=== PATIENT | male | born 1980 | race Caucasian/White ===

== ENCOUNTER 2021-08-26 13:12 | Inpatient (IN) | payer BC ==
[2021-08-26] MEDS ORDERED: SODIUM CHLORIDE 0.9% 2,000 ML IV ONE (15:29)
[2021-08-26] MEDS ORDERED: ONDANSETRON 4 MG/2 ML VIAL IVP STA (15:31)
[2021-08-26] MEDS ORDERED: MORPHINE SULFATE 4 MG/ML SYRINGE IVP STA (15:31)
[2021-08-26] MEDS ORDERED: ACETAMINOPHEN TAB 500 MG TAB PO STA (15:31)
[2021-08-26 16:22] LABS: Appearance,Urine Clear (Clear); Bilirubin,Urine Negative (Negative); Blood,Urine Small (Negative); Color,Urine Yellow; Glucose,Urine (UA) Negative (Negative); Ketones,Urine 1+ (Negative); Leukocyte Esterase,Urine Negative (Negative); Mucus,Urine Many /hpf; Nitrite,Urine Negative (Negative); PH, Urine 6.5 (5.0-8.0); Protein,Urine 2+ (Negative); RBC,Urine 41 /hpf (0-5); Specific Gravity,Urine 1.032 (1.001-1.035); WBC,Urine 6 /hpf (0-5)
--- NOTE | 2021-08-26 16:33 | ED ---
General Adult HPI - General Chief complaint: Fever Stated complaint: Vomiting Time Seen by Provider: 08/26/21 15:09 Source: patient Mode of arrival: ambulatory Limitations: no limitations - History of Present Illness Initial comments: 41-year-old male, previously healthy presents the emergency room with 4 days worth of fevers and vomiting. He denies any sick contacts. States that on Saturday he started to feel ill. He has been unable to hold down any food or drink. He was taking Motrin for fever control however last dose was yesterday. He denies eating any tainted foods. Does have generalized abdominal pain. Denies bilious vomiting. Admits to some blood flecks in his emesis this morning. He denies diarrhea, constipation, black or bloody stools. No burning, bladder or frequency of urination. No back pain. Denies any head. Does admit to generalized muscle aches. No other alleviating, precipitating or modifying factors - Related Data Home Medications Medication Instructions Recorded Confirmed No Known Home Medications 08/26/21 08/26/21 Allergies Allergy/AdvReac Type Severity Reaction Status Date / Time No Known Allergies Allergy Verified 08/26/21 16:01 Review of Systems ROS Statement: Those systems with pertinent positive or pertinent negative responses have been documented in the HPI. ROS Other: All systems not noted in ROS Statement are negative. Past Medical History Past Medical History: No Reported History History of Any Multi-Drug Resistant Organisms: None Reported Past Surgical History: No Surgical Hx Reported Past Psychological History: No Psychological Hx Reported Smoking Status: Current every day smoker Past Alcohol Use History: None Reported Past Drug Use History: None Reported General Exam Limitations: no limitations Course Vital Signs 08/26/21 08/26/21 08/26/21 14:19 16:22 17:53 Temperature 103.1 F H 101.3 F H Pulse Rate 109 H 74 Respiratory 16 18 Rate Blood Pressure 171/102 121/62 O2 Sat by Pulse 99 99 Oximetry Medical Decision Making - Medical Decision Making Upon arrival patient is placed into room 8. Her history and physical exam was performed here IV access established the patient is given a 2 L bolus of normal saline and started on 100 mL per hour. He is given 4 Milgrom's morphine for pain, 4 mg of Zofran for nausea and thousand milligrams of Tylenol. Laboratory studies were conducted and reviewed. Patient does have an elevated white count of 14.6. Sodium 131 and potassium 3.2. Potassium is replaced. Covid and influenza are negative. Chest x-ray does demonstrate a bronchopneumonia. CT of the abdomen and pelvis demonstrates no intra-abdominal processes. Results are discussed with the patient. Agrees to admission for pneumonia with sepsis. Patient was given 2 g of Rocephin and azithromycin. Admitted to Dr. Shelton who agreed to admission. - Lab Data Result diagrams: 08/26/21 15:44 08/26/21 15:44 Lab Results 08/26/21 08/26/21 08/26/21 Range/Units 14:26 14:26 15:44 WBC 14.6 H (3.8-10.6) k/uL RBC 4.22 L (4.30-5.90) m/uL Hgb 12.8 L (13.0-17.5) gm/dL Hct 38.1 L (39.0-53.0) % MCV 90.2 (80.0-100.0) fL MCH 30.4 (25.0-35.0) pg MCHC 33.7 (31.0-37.0) g/dL RDW 12.4 (11.5-15.5) % Plt Count 215 (150-450) k/uL MPV 6.8 Neutrophils % 88 % Lymphocytes % 5 % Monocytes % 4 % Eosinophils % 0 % Basophils % 1 % Neutrophils # 12.9 H (1.3-7.7) k/uL Lymphocytes # 0.7 L (1.0-4.8) k/uL Monocytes # 0.6 (0-1.0) k/uL Eosinophils # 0.0 (0-0.7) k/uL Basophils # 0.1 (0-0.2) k/uL Sodium (137-145) mmol/L Potassium (3.5-5.1) mmol/L Chloride (98-107) mmol/L Carbon Dioxide (22-30) mmol/L Anion Gap mmol/L BUN (9-20) mg/dL Creatinine (0.66-1.25) mg/dL Est GFR (CKD-EPI)AfAm (>60 ml/min/1.73 sqM) Est GFR (CKD-EPI)NonAf (>60 ml/min/1.73 sqM) Glucose (74-99) mg/dL Plasma Lactic Acid Clement (0.7-2.0) mmol/L Calcium (8.4-10.2) mg/dL Total Bilirubin (0.2-1.3) mg/dL AST (17-59) U/L ALT (4-49) U/L Alkaline Phosphatase (38-126) U/L Creatine Kinase (55-170) U/L Total Protein (6.3-8.2) g/dL Albumin (3.5-5.0) g/dL Lipase (23-300) U/L Urine Color Urine Appearance (Clear) Urine pH (5.0-8.0) Ur Specific Sutter (1.001-1.035) Urine Protein (Negative) Urine Glucose (UA) (Negative) Urine Ketones (Negative) Urine Blood (Negative) Urine Nitrite (Negative) Urine Bilirubin (Negative) Urine Urobilinogen (<2.0) mg/dL Ur Leukocyte Esterase (Negative) Urine RBC (0-5) /hpf Urine WBC (0-5) /hpf Urine Mucus (None) /hpf Coronavirus (PCR) Not Detected (Not Detectd) Influenza Type A RNA Not Detected (Not Detectd) Influenza Type B (PCR) Not Detected (Not Detectd) 08/26/21 08/26/21 08/26/21 Range/Units 15:44 15:44 15:44 WBC (3.8-10.6) k/uL RBC (4.30-5.90) m/uL Hgb (13.0-17.5) gm/dL Hct (39.0-53.0) % MCV (80.0-100.0) fL MCH (25.0-35.0) pg MCHC (31.0-37.0) g/dL RDW (11.5-15.5) % Plt Count (150-450) k/uL MPV Neutrophils % % Lymphocytes % % Monocytes % % Eosinophils % % Basophils % % Neutrophils # (1.3-7.7) k/uL Lymphocytes # (1.0-4.8) k/uL Monocytes # (0-1.0) k/uL Eosinophils # (0-0.7) k/uL Basophils # (0-0.2) k/uL Sodium 131 L (137-145) mmol/L Potassium 3.2 L (3.5-5.1) mmol/L Chloride 104 (98-107) mmol/L Carbon Dioxide 22 (22-30) mmol/L Anion Gap 5 mmol/L BUN 9 (9-20) mg/dL Creatinine 0.67 (0.66-1.25) mg/dL Est GFR (CKD-EPI)AfAm >90 (>60 ml/min/1.73 sqM) Est GFR (CKD-EPI)NonAf >90 (>60 ml/min/1.73 sqM) Glucose 119 H (74-99) mg/dL Plasma Lactic Acid Clement 0.6 L (0.7-2.0) mmol/L Calcium 7.3 L (8.4-10.2) mg/dL Total Bilirubin 0.5 (0.2-1.3) mg/dL AST 25 (17-59) U/L ALT 20 (4-49) U/L Alkaline Phosphatase 51 (38-126) U/L Creatine Kinase 154 (55-170) U/L Total Protein 5.9 L (6.3-8.2) g/dL Albumin 3.3 L (3.5-5.0) g/dL Lipase 40 (23-300) U/L Urine Color Yellow Urine Appearance Clear (Clear) Urine pH 6.5 (5.0-8.0) Ur Specific Sutter 1.032 (1.001-1.035) Urine Protein 2+ H (Negative) Urine Glucose (UA) Negative (Negative) Urine Ketones 1+ H (Negative) Urine Blood Small H (Negative) Urine Nitrite Negative (Negative) Urine Bilirubin Negative (Negative) Urine Urobilinogen 3.0 (<2.0) mg/dL Ur Leukocyte Esterase Negative (Negative) Urine RBC 41 H (0-5) /hpf Urine WBC 6 H (0-5) /hpf Urine Mucus Many H (None) /hpf Coronavirus (PCR) (Not Detectd) Influenza Type A RNA (Not Detectd) Influenza Type B (PCR) (Not Detectd) Disposition Clinical Impression: Pyrexia, Vomiting, Pneumonia Disposition: ADMITTED IP TO THIS [facility] Condition: Stable Is patient prescribed a controlled substance at d/c from ED?: No Time of Disposition: 18:45 Decision to Admit Reason: Admit from EC Decision Date: 08/26/21 Decision Time: 18:45
--- NOTE | 2021-08-26 16:43 | XR ---
EXAMINATION TYPE: XR chest 2V DATE OF EXAM: 08/26/2021 COMPARISON: NONE HISTORY: Cough and fever TECHNIQUE: 2 views FINDINGS: There is a 8 cm somewhat rounded masslike infiltrate in the right mid lung field. Edges are indistinct and likely related to bronchopneumonia. This is in the anterior segment of the right uppe r lobe . The left lung is clear. Heart and mediastinum are normal. Diaphragm is normal. Bony thorax is intac t. IMPRESSION: Right upper lobe pneumonic consolidation most likely bronchopneumonia.
[2021-08-26 17:24] LABS: Basophils # (A) 0.1 k/uL (0-0.2); Basophils % (A) 1 %; Eosinophils % (A) 0 %; HCT 38.1 % (39.0-53.0); HGB 12.8 gm/dL (13.0-17.5); Lymphocytes # (A) 0.7 k/uL (1.0-4.8); Lymphocytes % (A) 5 %; MCH 30.4 pg (25.0-35.0); MCHC 33.7 g/dL (31.0-37.0); MCV 90.2 fL (80.0-100.0); Mean Platelet Volume 6.8; Monocytes # (A) 0.6 k/uL (0-1.0); Monocytes % (A) 4 %; Neutrophils # (A) 12.9 k/uL (1.3-7.7); Neutrophils % (A) 88 %; Platelet Count 215 k/uL (150-450); RBC 4.22 m/uL (4.30-5.90); RDW 12.4 % (11.5-15.5); WBC 14.6 k/uL (3.8-10.6)
[2021-08-26 17:37] LABS: ALT 20 U/L (4-49); AST 25 U/L (17-59); African American GFR (CKD) >90 (>60 ml/min/1.73 sqM); Albumin 3.3 g/dL (3.5-5.0); Alkaline Phosphatase 51 U/L (38-126); Anion Gap 5 mmol/L; Blood Urea Nitrogen 9 mg/dL (9-20); Calcium 7.3 mg/dL (8.4-10.2); Carbon Dioxide 22 mmol/L (22-30); Chloride 104 mmol/L (98-107); Creatine Kinase 154 U/L (55-170); Glucose 119 mg/dL (74-99); Lipase 40 U/L (23-300); Non-African American GFR(CKD) >90 (>60 ml/min/1.73 sqM); Potassium 3.2 mmol/L (3.5-5.1); Sodium 131 mmol/L (137-145); Total Bilirubin 0.5 mg/dL (0.2-1.3); Total Protein 5.9 g/dL (6.3-8.2)
[2021-08-26] MEDS ORDERED: POTASSIUM CHLORIDE ER 20 MEQ TAB.ER PO STA (18:14)
[2021-08-26] MEDS ORDERED: cefTRIAXone IN SWFI 1,000 MG/10 ML SYRINGE IVP STA (18:28)
--- NOTE | 2021-08-26 18:28 | CT ---
EXAMINATION TYPE: CT abdomen pelvis w con DATE OF EXAM: 08/26/2021 COMPARISON: HISTORY: wekaness, pain, vomiting CT DLP: 1449.8 mGycm Automated exposure control for dose reduction was used. CONTRAST: Performed with IV Contrast, patient injected with 100 mL of Isovue 300. Images obtained from the diaphragm to the level of the pelvis with IV contrast. There is some mild patchy airspace infiltrate at the lung bases bilaterally. No pleural effusion. Hea rt size is normal. No pericardial effusion. Liver spleen and stomach pancreas and gallbladder appear intact. The bile ducts are not dilated. There is no adrenal mass. Kidneys have normal size and contour. No hydronephrosis. Ureters are not di lated. There is no retroperitoneal adenopathy. Bladder distends smoothly. No inguinal hernia. No free fluid in the pelvis. Appendix is inferior and lateral and appears normal. There is no evidence of a pelvic mass. No free fluid in the pelvis. There is no mesenteric edema. No ascites or free air. No sign of a bowel obstruction. The lumbar vert ebra have normal spacing and alignment. Posterior elements are intact. Hip joints are intact. Sacroil iac joints are intact. IMPRESSION: Negative CT scan of the abdomen and pelvis. Normal appendix. Bilateral airspace infiltrates in the lower lung ramos.
[2021-08-26] MEDS ORDERED: PNEUMONIA PROTOCOL UTILIZED 1 EACH MISC PO PRN (18:40)
[2021-08-26] MEDS ORDERED: ONDANSETRON 4 MG/2 ML VIAL IVP PRN (18:46)
[2021-08-26] MEDS ORDERED: NALOXONE 0.4 MG/ML 1 ML VIAL IV PRN (18:46)
[2021-08-26] MEDS: IBUPROFEN 400 MG TAB PO PRN (20:51)
[2021-08-26] MEDS: ACETAMINOPHEN TAB 325 MG TAB PO PRN (21:43)
[2021-08-26] MEDS: SODIUM CHLORIDE 0.9% 1,000 ML IV SCH (22:28)
[2021-08-26] MEDS: AZITHROMYCIN 500 MG TAB PO SCH (22:28)
--- NOTE | 2021-08-26 23:54 | P.HPIM ---
History of Present Illness H&P Date: 08/26/21 Patient is a 41-year-old male with a PMH of tobacco abuse who presents to the emergency room with complaints of fever. The patient reports that his symptoms started this past Saturday, roughly 4 days ago, initially with myalgias, and then developing fever. He also had nausea with nonbloody nonbilious emesis during his episodes of high-grade fever. Reports a nonproductive cough during this time but denied shortness of breath or chest discomfort. Denied experiencing headaches or neck pain. Also denied visual disturbances, abdominal pain, or diarrhea. Denied urinary complaints or penile discharge. Denies any abnormal rashes. Denies recent travel or sick contacts. Denies lower extremity swelling or pain. Reports smoking 1 pack of cigarettes daily but denied any illicit or IV substance use. Reports no prior history of pneumonias or being hospitalized. 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 The emergency room, the patient was febrile upon presentation T-max 103.1, pulse 109. Laboratory evaluation was remarkable for leukocytosis of 14.6, sodium 131, potassium 3.2, lactic acid 0.6, coronavirus PCR and influenza testing negative, with the UA showing 41 RBCs, 2+ protein, and 1+ ketones. CT abdomen and pelvis was unremarkable with chest x-ray showing right upper lobe consolidation, likely broncho-pneumonia. Review of systems: Pertinent positives and negatives as discussed in HPI, a complete review of systems was performed and all other systems are negative. Physical examination: General: non toxic, no distress, appears at stated age, obese Derm: no unusual rashes/lesions, warm Head: atraumatic, normocephalic, symmetric Eyes: EOMI, no lid lag, anicteric sclera, pupils equal round reactive to light ENT: Nose and ears atraumatic Neck: No cervical lymphadenopathy, trachea midline, supple Mouth: no lip lesion, mucus membranes moist Cardiovascular: S1S2 reg, no murmur, positive dorsalis pedis pulse bilateral, no edema Lungs: CTA bilateral, no rhonchi, no rales, no accessory muscle use Abdominal: soft, nontender to palpation, no guarding Ext: muscle strength 5 out of 5 in all 4 extremities grossly, no gross muscle atrophy, no contractures, Neuro: CN II-XI grossly intact, no gross focal neuro deficits Psych: Alert, oriented, appropriate affect Assessment/plan Sepsis secondary to community acquired pneumonia -Continue with azithromycin and ceftriaxone -IV fluids -Follow-up blood cultures Hypokalemia -Replace and monitor DVT prophylaxis -Heparin subq The patient is admitted with an anticipated greater than 2 midnight stay for evaluation of pneumonia CODE STATUS: Full Code Discussed with: Patient Anticipated discharge date: 08/[address]: Home Past Medical History Past Medical History: No Reported History History of Any Multi-Drug Resistant Organisms: None Reported Past Surgical History: No Surgical Hx Reported Past Psychological History: No Psychological Hx Reported Smoking Status: Current every day smoker Past Alcohol Use History: None Reported Past Drug Use History: None Reported - Past Family History Father Family Medical History: Hypertension Medications and Allergies Home Medications Medication Instructions Recorded Confirmed Type No Known Home Medications 08/26/21 08/26/21 History Allergies Allergy/AdvReac Type Severity Reaction Status Date / Time No Known Allergies Allergy Verified 08/26/21 16:01 Physical Exam Vitals: Vital Signs Temp Pulse Pulse Resp BP BP Pulse Ox 08/26/21 22:40 100.4 F H 08/26/21 21:03 103 F H 102 H 18 161/80 98 08/26/21 17:53 74 18 121/62 99 08/26/21 16:22 101.3 F H 08/26/21 14:19 103.1 F H 109 H 16 171/102 99 Intake and Output 08/26/21 08/26/21 08/27/21 14:59 22:59 06:59 Other: Weight 104.326 kg 104.326 kg Results CBC & Chem 7: 08/26/21 15:44 08/26/21 15:44 Labs: Abnormal Lab Results - Last 24 Hours (Table) 08/26/21 08/26/21 08/26/21 Range/Units 15:44 15:44 15:44 WBC 14.6 H (3.8-10.6) k/uL RBC 4.22 L (4.30-5.90) m/uL Hgb 12.8 L (13.0-17.5) gm/dL Hct 38.1 L (39.0-53.0) % Neutrophils # 12.9 H (1.3-7.7) k/uL Lymphocytes # 0.7 L (1.0-4.8) k/uL Sodium 131 L (137-145) mmol/L Potassium 3.2 L (3.5-5.1) mmol/L Glucose 119 H (74-99) mg/dL Plasma Lactic Acid Clement (0.7-2.0) mmol/L Calcium 7.3 L (8.4-10.2) mg/dL Total Protein 5.9 L (6.3-8.2) g/dL Albumin 3.3 L (3.5-5.0) g/dL Urine Protein 2+ H (Negative) Urine Ketones 1+ H (Negative) Urine Blood Small H (Negative) Urine RBC 41 H (0-5) /hpf Urine WBC 6 H (0-5) /hpf Urine Mucus Many H (None) /hpf 08/26/21 Range/Units 15:44 WBC (3.8-10.6) k/uL RBC (4.30-5.90) m/uL Hgb (13.0-17.5) gm/dL Hct (39.0-53.0) % Neutrophils # (1.3-7.7) k/uL Lymphocytes # (1.0-4.8) k/uL Sodium (137-145) mmol/L Potassium (3.5-5.1) mmol/L Glucose (74-99) mg/dL Plasma Lactic Acid Clement 0.6 L (0.7-2.0) mmol/L Calcium (8.4-10.2) mg/dL Total Protein (6.3-8.2) g/dL Albumin (3.5-5.0) g/dL Urine Protein (Negative) Urine Ketones (Negative) Urine Blood (Negative) Urine RBC (0-5) /hpf Urine WBC (0-5) /hpf Urine Mucus (None) /hpf
[2021-08-27] MEDS: ACETAMINOPHEN TAB 325 MG TAB PO PRN ×4 (04:41→23:09)
[2021-08-27] MEDS: SODIUM CHLORIDE 0.9% 1,000 ML IV SCH ×3 (06:13→17:38)
--- NOTE | 2021-08-27 07:56 | XR ---
EXAMINATION TYPE: XR chest 2V DATE OF EXAM: 08/27/2021 6:34 AM COMPARISON: Chest radiograph from one day prior. CT abdomen and pelvis 08/27/2021. TECHNIQUE: XR chest 2V Frontal and lateral views of the chest. CLINICAL INDICATION:Male, 41 years old with history of pneumonia; FINDINGS: Lungs/Pleura: Similar multifocal airspace opacities predominantly in the right with a more masslike c onsolidation in the right upper lobe. No evidence of pneumothorax or pleural effusion. Pulmonary vascularity: Unremarkable. Heart/mediastinum: Cardiomediastinal silhouette is unremarkable. Musculoskeletal: No acute osseous pathology. IMPRESSION: Similar predominantly right multifocal airspace opacities and masslike consolidation in the right cassie g. There is a partially visualized on CT abdomen pelvis 08/27/2021.
[2021-08-27] MEDS: IBUPROFEN 400 MG TAB PO PRN (08:20)
[2021-08-27] MEDS: AZITHROMYCIN 500 MG TAB PO SCH (08:20)
[2021-08-27 09:38] LABS: Basophils # (A) 0.04 X 10*3/uL (0.00-0.10); Basophils % (A) 0.3 %; Eosinophils # (A) 0.05 X 10*3/uL (0.04-0.35); Eosinophils % (A) 0.3 %; HCT 41.3 % (39.6-50.0); HGB 13.8 g/dL (13.0-17.0); Immature Grans, Automated 0.5 %; Lymphocytes # (A) 0.99 X 10*3/uL (0.90-5.00); Lymphocytes % (A) 6.5 %; MCH 29.8 pg (27.0-32.0); MCHC 33.4 g/dL (32.0-37.0); MCV 89.2 fL (80.0-97.0); Mean Platelet Volume 9.3 fL (9.5-12.2); Monocytes % (A) 9.9 %; NRBC Per 100 WBC 0 /100 WBCS (0.0-0.0); Neutrophils # (A) 12.49 X 10*3/uL (1.80-7.70); Neutrophils % (A) 82.5 %; Platelet Count 231 X 10*3/uL (140-440); RBC 4.63 X 10*6/uL (4.40-5.60); RDW 13.1 % (11.5-14.5); WBC 15.15 X 10*3/uL (4.50-10.00)
[2021-08-27 09:56] LABS: African American GFR (CKD) 135.9 (60.0-200.0); Anion Gap 12.9 mmol/L (10.00-18.00); BUN/Creat Ratio 13.14 Ratio (12.00-20.00); Blood Urea Nitrogen 9.2 mg/dL (9.0-27.0); Calcium 8.3 mg/dL (8.7-10.3); Carbon Dioxide 21.1 mmol/L (20.0-27.5); Non-African American GFR(CKD) 117.2 (60.0-200.0); Potassium 3.8 mmol/L (3.5-5.5)
--- NOTE | 2021-08-27 10:46 | P.PN ---
Subjective Reason for admission: 41-year-old male without significant medical history no home medications, admitted with fever or chills dry cough malaise. Found to have pneumonia, infiltrates in the chest x-ray in the right upper lobe. Patient was admitted with fevers, dry cough malaise. Patient was found to have infiltrate in the right upper lobe on the chest x-ray. Patient denies any expectorations or hemoptysis. He's feeling better this morning. He denies any hematuria. His UA is positive for RBCs. Creatinine is normal. No proteinuria. Denies any skin rash joint swelling traveling or sick contacts. Coronavirus and influenza test negative. Objective - Vital Signs Vital signs: Vital Signs Temp 99.2 F 08/27/21 08:00 Pulse 84 08/27/21 08:00 Resp 17 08/27/21 08:00 BP 107/70 08/27/21 08:00 Pulse Ox 98 08/27/21 08:00 FiO2 Intake & Output 08/26/21 08/27/21 08/27/21 18:59 06:59 18:59 Intake Total 1170 Balance 1170 Weight 104.326 kg 104.326 kg Intake: Intake, IV Titration 1170 Amount Sodium Chloride 0.9% 1, 1170 000 ml @ 130 mls/hr IV . [facility] Rx#:[id number] Other: # Voids 2 - Exam Awake alert oriented 3, no acute distress Head and neck: Anicteric sclera, extraocular movements intact, no facial asymmetry, oropharyngeal mucosa is moist without any lesions, neck is supple without rigidity, no neck masses or neck vein distention Heart: Regular rhythm and rate, S1, S2; no murmurs rubs or gallops Lungs: Breath sounds present bilateral, bronchial breath sounds, inspiratory rhonchi and crackles heard on the right side mid and lower lung ramos Abdomen: Bowel sounds present throughout, abdomen is soft, nontender, nondistended, no involuntary guarding, no hernias or organomegaly, no flank tenderness Extremities: No peripheral edema, no cyanosis, warm well perfused with palpable dorsalis pedis pulses bilateral and good capillary refill, without joint swelling or deformities, no skin rashes, no joint swelling - Labs CBC & Chem 7: 08/27/21 06:20 08/27/21 06:20 Labs: Abnormal Lab Results - Last 24 Hours (Table) 08/26/21 08/26/21 08/26/21 Range/Units 15:44 15:44 15:44 WBC 14.6 H (3.8-10.6) k/uL RBC 4.22 L (4.30-5.90) m/uL Hgb 12.8 L (13.0-17.5) gm/dL Hct 38.1 L (39.0-53.0) % MPV (9.5-12.2) fL Immature Gran # (0.00-0.04) X 10*3/uL Neutrophils # 12.9 H (1.3-7.7) k/uL Lymphocytes # 0.7 L (1.0-4.8) k/uL Monocytes # (0.20-1.00) X 10*3/uL Sodium 131 L (137-145) mmol/L Potassium 3.2 L (3.5-5.1) mmol/L Glucose 119 H (74-99) mg/dL Plasma Lactic Acid Clement (0.7-2.0) mmol/L Calcium 7.3 L (8.4-10.2) mg/dL Total Protein 5.9 L (6.3-8.2) g/dL Albumin 3.3 L (3.5-5.0) g/dL Urine Protein 2+ H (Negative) Urine Ketones 1+ H (Negative) Urine Blood Small H (Negative) Urine RBC 41 H (0-5) /hpf Urine WBC 6 H (0-5) /hpf Urine Mucus Many H (None) /hpf 08/26/21 08/27/21 08/27/21 Range/Units 15:44 06:20 06:20 WBC 15.15 H (3.8-10.6) k/uL RBC (4.30-5.90) m/uL Hgb (13.0-17.5) gm/dL Hct (39.0-53.0) % MPV 9.3 L (9.5-12.2) fL Immature Gran # 0.08 H (0.00-0.04) X 10*3/uL Neutrophils # 12.49 H (1.3-7.7) k/uL Lymphocytes # (1.0-4.8) k/uL Monocytes # 1.50 H (0.20-1.00) X 10*3/uL Sodium (137-145) mmol/L Potassium (3.5-5.1) mmol/L Glucose 115 H (74-99) mg/dL Plasma Lactic Acid Clement 0.6 L (0.7-2.0) mmol/L Calcium 8.3 L (8.4-10.2) mg/dL Total Protein (6.3-8.2) g/dL Albumin (3.5-5.0) g/dL Urine Protein (Negative) Urine Ketones (Negative) Urine Blood (Negative) Urine RBC (0-5) /hpf Urine WBC (0-5) /hpf Urine Mucus (None) /hpf Assessment and Plan Assessment: #Community-acquired pneumonia with sepsis Chest x-ray: Right upper lobe infiltrate CT abdomen and pelvis: No intra-abdominal abnormalities, picked up by basilar multifocal groundglass infiltrate Continue ceftriaxone and Zithromax, anti tussics, bronchodilators when necessary Blood cultures, no growth to date Ordered sputum Gram stain culture Legionella urine antigen MRSA nasal screen Pulmonary consultation #Microscopic hematuria Normal creatinine Evaluate for possibility of underlying GN We'll consult nephrology Obtained repeat urinalysis DVT prophylaxis: Subcu heparin
[2021-08-27] MEDS ORDERED: ALBUTEROL NEBULIZED 2.5 MG/3 ML INHALATION PRN (10:48)
--- NOTE | 2021-08-27 11:30 | P.CNPUL ---
History of Present Illness Consult date: 08/27/21 Requesting physician: Suha Giron Reason for consult: pneumonia Chief complaint: Fever, nausea and vomiting and cough History of present illness: This is a 41-year-old white male, [id number] smoking history, smokes on the average of one pack per day, no previous history of medical illnesses. Patient is normally healthy. He came in with 4 days history of cough and fever, describes the cough as nonproductive cough, minimal shortness of breath, he also had intermittent episodes of nausea and vomiting. Chest x-ray showed significant consolidation in the right midlung area and right upper lobe. Chest x-ray showed basically a masslike consolidation. Patient was admitted placed on Rocephin and Zithromax, and this consult was initiated. Patient was noted to have leukocytosis with WBC count of 15,000. Elevated PMNs. Normal electrolytes and normal renal profile. CT of abdomen and pelvis done on this admission for his symptoms of nausea and vomiting came back unremarkable. Patient is now on room air, O2 saturations 98%. His temperature now is 99.2. Review of Systems Constitutional: Fever chills no weight loss. Denies aches and pains. HEENT: Negative Pulmonary: Mostly dry cough. GI: Nausea and vomiting no diarrhea. No abdominal pain. Genitourinary: Negative. Musculoskeletal: Negative. Hematologic: Negative. Psychiatric: Negative. Neurologic: Negative denies any headache blurred vision or dizziness. Skin: Negative. Psychiatric: Negative. Past Medical History Past Medical History: No Reported History History of Any Multi-Drug Resistant Organisms: None Reported Past Surgical History: No Surgical Hx Reported Past Psychological History: No Psychological Hx Reported Smoking Status: Current every day smoker Past Alcohol Use History: None Reported Past Drug Use History: None Reported - Past Family History Father Family Medical History: Hypertension Medications and Allergies Home Medications Medication Instructions Recorded Confirmed Type No Known Home Medications 08/26/21 08/26/21 History Allergies Allergy/AdvReac Type Severity Reaction Status Date / Time No Known Allergies Allergy Verified 08/26/21 16:01 Physical Exam Vitals: Vital Signs Temp Pulse Pulse Resp BP BP Pulse Ox 08/27/21 08:00 99.2 F 84 17 107/70 98 08/27/21 05:57 99.8 F H 08/27/21 04:43 101.6 F H 08/27/21 03:10 100.0 F H 08/27/21 02:00 99.4 F 83 16 106/72 98 08/27/21 00:12 99.1 F 08/26/21 22:40 100.4 F H 08/26/21 21:03 103 F H 102 H 18 161/80 98 08/26/21 17:53 74 18 121/62 99 08/26/21 16:22 101.3 F H 08/26/21 14:19 103.1 F H 109 H 16 171/102 99 Intake and Output 08/26/21 08/27/21 08/27/21 22:59 06:59 14:59 Intake Total 1170 Balance 1170 Intake: Intake, IV Titration 1170 Amount Sodium Chloride 0.9% 1, 1170 000 ml @ 130 mls/hr IV . Q7H42M [facility] Rx#:[id number] Other: # Voids 2 Weight 104.326 kg Physical Exam: Revealed 41-year-old white male, in no distress. On room air. Head: Atraumatic, normocephalic. HEENT:[Neck is supple.] [No neck masses.] [No thyromegaly.] [No JVD.] Chest: [Left side is relatively clear, rhonchi noted on the right side anteriorly. Symmetrical chest expansion. Cardiac Exam: [Normal S1 and S2, no S3 gallop, no murmur.] Abdomen: [Soft, nontender, no megaly, no rebound, no guarding, normal bowel sounds.] Extremities: [No clubbing, no edema, no cyanosis.] Good pulses bilaterally. Neurological Exam: [No focal neurologic deficit.] Alert and oriented 3. Psychiatric: Normal mood, affect and normal mental status examination. Skin: No rashes. Results - Laboratory Findings CBC and BMP: 08/27/21 06:20 08/27/21 06:20 Abnormal lab findings: Abnormal Labs 08/26/21 08/26/21 08/26/21 15:44 15:44 15:44 WBC 14.6 H RBC 4.22 L Hgb 12.8 L Hct 38.1 L MPV Immature Gran # Neutrophils # 12.9 H Lymphocytes # 0.7 L Monocytes # Sodium 131 L Potassium 3.2 L Glucose 119 H Plasma Lactic Acid Clement Calcium 7.3 L Total Protein 5.9 L Albumin 3.3 L Urine Protein 2+ H Urine Ketones 1+ H Urine Blood Small H Urine RBC 41 H Urine WBC 6 H Urine Mucus Many H 08/26/21 08/27/21 08/27/21 15:44 06:20 06:20 WBC 15.15 H RBC Hgb Hct MPV 9.3 L Immature Gran # 0.08 H Neutrophils # 12.49 H Lymphocytes # Monocytes # 1.50 H Sodium Potassium Glucose 115 H Plasma Lactic Acid Clement 0.6 L Calcium 8.3 L Total Protein Albumin Urine Protein Urine Ketones Urine Blood Urine RBC Urine WBC Urine Mucus - Diagnostic Findings Chest x-ray: image reviewed (As noted in HPI masslike consolidation noted in the right midlung and right upper lobe) Assessment and Plan Assessment: Impression: Acute community-acquired pneumonia, patient had negative PCR for COVID-19 inf ection negative influenza screen including influenza A and influenza B. Leukocytosis secondary to above. Recommendation: Agree with Rocephin and Zithromax. Legionella antigen is pending. Pro-calcitonin is pending expected to be extremely high. Continue bronchodilators./DuoNeb. No need for CT of the chest at this point, however considering CT in the patient does not improve much in the next couple of days. We will continue to follow. Time with Patient: Greater than 30
--- NOTE | 2021-08-27 11:30 | P.NPCON ---
History of Present Illness - Reason for Consult proteinuria - History of Present Illness Patient is a 41-year-old male who was admitted to the hospital with complaints of fever, increased muscle weakness and fatigue. He has had nausea with no significant diarrhea or vomiting. Mild cough. COVID-19 PCR negative as well as influenza Patient denies any history of kidney diseases in the past UA shows 2+ protein and 1+ blood, 41 RBCs. Patient admits to taking Motrin for the past 4-5 days prior to admission for fever No other home medications. Chest x-ray shows multifocal airspace opacities and masslike consolidation in the right lung. CT of the abdomen and pelvis was unremarkable Review of Systems As per HPI Past Medical History Past Medical History: No Reported History History of Any Multi-Drug Resistant Organisms: None Reported Past Surgical History: No Surgical Hx Reported Past Psychological History: No Psychological Hx Reported Smoking Status: Current every day smoker Past Alcohol Use History: None Reported Past Drug Use History: None Reported - Past Family History Father Family Medical History: Hypertension Medications and Allergies Home Medications Medication Instructions Recorded Confirmed Type No Known Home Medications 08/26/21 08/26/21 History Allergies Allergy/AdvReac Type Severity Reaction Status Date / Time No Known Allergies Allergy Verified 08/26/21 16:01 Physical Exam Vitals: Vital Signs Temp Pulse Pulse Resp BP BP Pulse Ox 08/27/21 08:00 99.2 F 84 17 107/70 98 08/27/21 05:57 99.8 F H 08/27/21 04:43 101.6 F H 08/27/21 03:10 100.0 F H 08/27/21 02:00 99.4 F 83 16 106/72 98 08/27/21 00:12 99.1 F 08/26/21 22:40 100.4 F H 08/26/21 21:03 103 F H 102 H 18 161/80 98 08/26/21 17:53 74 18 121/62 99 08/26/21 16:22 101.3 F H 08/26/21 14:19 103.1 F H 109 H 16 171/102 99 Intake and Output 08/26/21 08/27/21 08/27/21 22:59 06:59 14:59 Intake Total 1170 Balance 1170 Intake: Intake, IV Titration 1170 Amount Sodium Chloride 0.9% 1, 1170 000 ml @ 130 mls/hr IV . Q7H42M [facility] Rx#:[id number] Other: # Voids 2 Weight 104.326 kg Patient is awake, comfortable, not in any acute distress Examination of the heart S1 and S2 Examination of lungs bilateral breath sounds are heard, decreased breath sounds at the bases Abdomen is soft nontender Examination lower extremity shows no evidence of edema OSD CLERK exam grossly intact Results - Lab Results Most recent lab results Calcium 8.3 mg/dL (8.7-10.3) L 08/27/21 06:20 08/27/21 06:20 08/27/21 06:20 Assessment and Plan Assessment: 1. Hematuria/proteinuria noted on UA possibly related to use of NSAIDs and volume depletion. Given the chest x-ray findings I will proceed with serology workup and quantification of proteinuria. We will repeat another UA in about 2- 3 days post hydration 2. Fever most likely from pneumonia 3. Hypokalemia status post replacement 4. Community-acquired pneumonia, mostly right lung maintained on antibiotics. Pulmonary on consult Plan: Continue aggressive IV hydration Repeat UA in 2-3 days Check urine protein creatinine ratio Check baseline serologies Avoid NSAIDs Thank you for the consultation we'll continue to follow the patient with you during his hospitalization
[2021-08-27] MEDS ORDERED: IBUPROFEN 400 MG TAB PO PRN (14:00)
[2021-08-27] MEDS: HYDROcodone/APAP 5-325MG 1 EACH TAB PO PRN ×2 (14:12→21:04)
[2021-08-27 16:08] LABS: Appearance,Urine Clear (Clear); Bilirubin,Urine Negative (Negative); Blood,Urine Trace (Negative); Color,Urine Yellow; Glucose,Urine (UA) Negative (Negative); Ketones,Urine Negative (Negative); Leukocyte Esterase,Urine Negative (Negative); Mucus,Urine Occasional /hpf; Nitrite,Urine Negative (Negative); PH, Urine 6.5 (5.0-8.0); Protein,Urine Trace (Negative); RBC,Urine 10 /hpf (0-5); Specific Gravity,Urine 1.025 (1.001-1.035); WBC,Urine 2 /hpf (0-5)
[2021-08-28] MEDS: HYDROcodone/APAP 5-325MG 1 EACH TAB PO PRN (03:44)
[2021-08-28] MEDS: SODIUM CHLORIDE 0.9% 1,000 ML IV SCH ×3 (04:12→22:18)
[2021-08-28] MEDS: ACETAMINOPHEN TAB 325 MG TAB PO PRN ×2 (05:57→22:12)
[2021-08-28] MEDS ORDERED: RX INFO: IV CONTRAST WAS GIVEN 1 EACH MISC MISCELLANE PRN (07:58)
[2021-08-28] MEDS: ENOXAPARIN 40 MG/0.4 ML SYRINGE SQ SCH (08:25)
[2021-08-28] MEDS: AZITHROMYCIN 500 MG TAB PO SCH (08:25)
[2021-08-28 08:44] LABS: HCT 37.4 % (39.6-50.0); HGB 12.2 g/dL (13.0-17.0); MCH 29.2 pg (27.0-32.0); MCHC 32.6 g/dL (32.0-37.0); MCV 89.5 fL (80.0-97.0); Mean Platelet Volume 9.4 fL (9.5-12.2); NRBC Per 100 WBC 0 /100 WBCS (0.0-0.0); Platelet Count 234 X 10*3/uL (140-440); RBC 4.18 X 10*6/uL (4.40-5.60); RDW 13.2 % (11.5-14.5); WBC 10.42 X 10*3/uL (4.50-10.00)
--- NOTE | 2021-08-28 10:12 | P.PN ---
Subjective Progress Note Date: 08/28/21 This is a 41-year-old white male, [id number] smoking history, smokes on the average of one pack per day, no previous history of medical illnesses. Patient is normally healthy. He came in with 4 days history of cough and fever, describes the cough as nonproductive cough, minimal shortness of breath, he also had intermittent episodes of nausea and vomiting. Chest x-ray showed significant consolidation in the right midlung area and right upper lobe. Chest x-ray showed basically a masslike consolidation. Patient was admitted placed on Rocephin and Zithromax, and this consult was initiated. Patient was noted to have leukocytosis with WBC count of 15,000. Elevated PMNs. Normal electrolytes and normal renal profile. CT of abdomen and pelvis done on this admission for his symptoms of nausea and vomiting came back unremarkable. Patient is now on room air, O2 saturations 98%. His temperature now is 99.2. The patient is seen today 08/28/2021 in follow-up on the regular medical floor. He is currently resting fairly comfortably in bed. Awake and alert in no acute distress. He is maintaining good O2 saturations up to 99% on room air. He's currently afebrile. Hemodynamically stable. He did have an elevated temperature of 100.7 last evening. He also coughed up some blood-tinged sputum. White count 10.4. Hemoglobin 12.2. Pro-calcitonin was 0.28. Legionella antigen screen negative. He remains on ceftriaxone and azithromycin. He has normal saline running at 130 ML's per hour. He is also having issues with hematuria. Nephrology was consulted. Objective - Vital Signs Vital signs: Vital Signs Temp 98.6 F 08/28/21 07:32 Pulse 79 08/28/21 07:38 Resp 19 08/28/21 07:38 BP 113/73 08/28/21 07:32 Pulse Ox 99 08/28/21 07:32 FiO2 Intake & Output 08/27/21 08/28/21 08/28/21 18:59 06:59 18:59 Intake Total 1610 Balance 1610 Intake: Intake, IV Titration 1610 Amount Sodium Chloride 0.9% 1, 1560 000 ml @ 130 mls/hr IV . Q7H42M [facility] Rx#:[id number] cefTRIAXone 1 gm In 50 Sodium Chloride 0.9% 50 ml @ 100 mls/hr IVPB Q24H [facility] Rx#:[id number] Other: # Voids 4 - Exam GENERAL EXAM: Alert, pleasant 41-year-old male patient, on room air, fairly comfortable in no apparent distress. HEAD: Normocephalic. EYES: Normal reaction of pupils, equal size. NOSE: Clear with pink turbinates. THROAT: No erythema or exudates. NECK: No masses, no JVD. CHEST: No chest wall deformity. LUNGS: Equal air entry with bilateral scattered rhonchi. CVS: S1 and S2 normal with no audible murmur, regular rhythm. ABDOMEN: No hepatosplenomegaly, normal bowel sounds, no guarding or rigidity. SPINE: No scoliosis or deformity SKIN: No rashes CENTRAL NERVOUS SYSTEM: No focal deficits, tone is normal in all 4 extremities. EXTREMITIES: There is no peripheral edema. No clubbing, no cyanosis. Peripheral pulses are intact. - Labs CBC & Chem 7: 08/28/21 06:09 08/27/21 06:20 Labs: Abnormal Lab Results - Last 24 Hours (Table) 08/27/21 08/27/21 08/28/21 Range/Units 09:25 14:57 06:09 WBC 10.42 H (4.50-10.00) X 10*3/uL RBC 4.18 L (4.40-5.60) X 10*6/uL Hgb 12.2 L (13.0-17.0) g/dL Hct 37.4 L (39.6-50.0) % MPV 9.4 L (9.5-12.2) fL Procalcitonin 0.28 H (0.02-0.09) ng/mL Urine Protein Trace H (Negative) Urine Blood Trace H (Negative) Urine RBC 10 H (0-5) /hpf Urine Mucus Occasional H (None) /hpf Microbiology - Last 24 Hours (Table) 08/26/21 19:10 Blood Culture - Preliminary Blood No Growth after 24 hours 08/26/21 19:45 Blood Culture - Preliminary Blood No Growth after 24 hours 08/27/21 10:57 Nasal Screen MRSA/MSSA - Preliminary Nasal Swab Assessment and Plan Assessment: 1 Acute community-acquired pneumonia. Pro-calcitonin 0.28. Legionella antigen screen negative, COVID-19 screen negative. Influenza and RSV screens negative. 2 Febrile illness secondary to above 3 Leukocytosis secondary to above 4 Hematuria of unclear etiology, possibly secondary to NSAIDs and dehydration. 5 Chronic tobacco dependence Plan: The patient was seen and evaluated Medications and labs reviewed Computed tomography scan of the chest ordered today Continue ceftriaxone and azithromycin for now Sputum culture pending We'll continue to follow I have personally seen and examined the patient, performed the documentation and the assessment and plan as written. Number of minutes spent on the visit: 10.
[2021-08-28 10:48] LABS: African American GFR (CKD) 144.7 (60.0-200.0); Anion Gap 10.3 mmol/L (10.00-18.00); BUN/Creat Ratio 15.67 Ratio (12.00-20.00); Blood Urea Nitrogen 9.4 mg/dL (9.0-27.0); Calcium 8.3 mg/dL (8.7-10.3); Carbon Dioxide 24.7 mmol/L (20.0-27.5); Magnesium 1.9 mg/dL (1.5-2.4); Non-African American GFR(CKD) 124.9 (60.0-200.0)
--- NOTE | 2021-08-28 11:18 | P.PN ---
Subjective Principal diagnosis: Community-acquired pneumonia Reason for admission: 41-year-old male without significant medical history no home medications, admitted with fever up to 103 or chills dry cough malaise, leukocytosis. Found to have pneumonia, infiltrate in the chest x-ray in the right upper lobe. UA significant for proteinuria and RBCs. Normal creatinine. Generally healthy now, history of frequent bronchitis as a child. He's feeling better this morning. Cough is improving, on the low-grade fever overnight. He had one episode of hemoptysis, blood-tinged sputum otherwise no new complaints no chest pain or shortness of breath. Objective - Vital Signs Vital signs: Vital Signs Temp 98.6 F 08/28/21 07:32 Pulse 79 08/28/21 07:38 Resp 19 08/28/21 07:38 BP 113/73 08/28/21 07:32 Pulse Ox 99 08/28/21 07:32 FiO2 Intake & Output 08/27/21 08/28/21 08/28/21 18:59 06:59 18:59 Intake Total 1610 Balance 1610 Intake: Intake, IV Titration 1610 Amount Sodium Chloride 0.9% 1, 1560 000 ml @ 130 mls/hr IV . Q7H42M [facility] Rx#:[id number] cefTRIAXone 1 gm In 50 Sodium Chloride 0.9% 50 ml @ 100 mls/hr IVPB Q24H [facility] Rx#:[id number] Other: # Voids 4 - Exam Awake alert oriented 3, no acute distress Head and neck: Anicteric sclera, extraocular movements intact, no facial asymmetry, oropharyngeal mucosa is moist without any lesions, neck is supple without rigidity, no neck masses or neck vein distention Heart: Regular rhythm and rate, S1, S2; no murmurs rubs or gallops Lungs: Breath sounds present bilateral, bronchial breath sounds, inspiratory rhonchi and crackles heard on the right side mid and lower lung ramos Abdomen: Bowel sounds present throughout, abdomen is soft, nontender, nondistended, no involuntary guarding, no hernias or organomegaly, no flank tenderness Extremities: No peripheral edema, no cyanosis, warm well perfused with palpable dorsalis pedis pulses bilateral and good capillary refill, without joint swelling or deformities, no skin rashes, no joint swelling - Labs CBC & Chem 7: 08/28/21 06:09 08/28/21 06:09 Labs: Abnormal Lab Results - Last 24 Hours (Table) 08/27/21 08/27/21 08/28/21 Range/Units 09:25 14:57 06:09 WBC (4.50-10.00) X 10*3/uL RBC (4.40-5.60) X 10*6/uL Hgb (13.0-17.0) g/dL Hct (39.6-50.0) % MPV (9.5-12.2) fL Calcium 8.3 L (8.7-10.3) mg/dL Procalcitonin 0.28 H (0.02-0.09) ng/mL Urine Protein Trace H (Negative) Urine Blood Trace H (Negative) Urine RBC 10 H (0-5) /hpf Urine Mucus Occasional H (None) /hpf 08/28/21 Range/Units 06:09 WBC 10.42 H (4.50-10.00) X 10*3/uL RBC 4.18 L (4.40-5.60) X 10*6/uL Hgb 12.2 L (13.0-17.0) g/dL Hct 37.4 L (39.6-50.0) % MPV 9.4 L (9.5-12.2) fL Calcium (8.7-10.3) mg/dL Procalcitonin (0.02-0.09) ng/mL Urine Protein (Negative) Urine Blood (Negative) Urine RBC (0-5) /hpf Urine Mucus (None) /hpf Microbiology - Last 24 Hours (Table) 08/26/21 19:10 Blood Culture - Preliminary Blood No Growth after 24 hours 08/26/21 19:45 Blood Culture - Preliminary Blood No Growth after 24 hours 08/27/21 10:57 Nasal Screen MRSA/MSSA - Preliminary Nasal Swab Assessment and Plan Assessment: #Community-acquired pneumonia with sepsis Fever, leukocytosis, tachycardia Chest x-ray: Right upper lobe infiltrate CT abdomen and pelvis: No intra-abdominal abnormalities, picked up by basilar multifocal groundglass infiltrate Continue ceftriaxone and Zithromax bronchodilators when necessary Blood cultures, no growth to date Ordered sputum Gram stain culture Legionella urine antigen: Negative MRSA nasal screen HIV Pulmonary consultation #Microscopic hematuria Normal creatinine Evaluate for possibility of underlying GN nephrology following DVT prophylaxis: Subcu heparin
--- NOTE | 2021-08-28 11:49 | CT ---
EXAMINATION TYPE: CT chest w con DATE OF EXAM: 08/28/2021 COMPARISON: CT abdomen dated 08/26/2021 HISTORY: Pneumonia R/O mass, hemoptysis CT DLP: 499.7 mGycm Automated exposure control for dose reduction was used. TECHNIQUE: CT scan of the chest is performed with IV Contrast, patient injected with 100 ml mL of Isovue 370. FINDINGS: LUNGS: Thick area of consolidation is seen in the right upper lobe with air bronchogram within, assoc iated with scattered groundglass opacities involving both lungs. This could be related to acute infla mmatory/infectious process like pneumonia however infiltrative neoplastic/malignant process cannot be excluded. Patent trachea and main bronchi. Small right pleural effusion. MEDIASTINUM: Large right hilar and mediastinal lymph nodes measuring up to 15 mm in subcarinal group and 18 mm in the right hilum. Subcentimeter left hilar lymph nodes, nonspecific. No significant axill leighann lymphadenopathy. No gross cardiomegaly. No pericardial effusion. Patent major mediastinal arterie s. OTHER: Small bilateral gynecomastia changes. Unremarkable upper abdomen. No aggressive bone lesion. IMPRESSION: The above described pulmonary changes could be related to acute inflammatory/infectious process like pneumonia, with likely reactive lymphadenopathy as described above, please correlate clinically. Foll ow-up to complete resolution is advised in 6-8 weeks. If there is no clinical presentation of pneumonia, infiltrating neoplastic/malignant process cannot b e excluded. In that case, further workup should be considered including bronchoscopy/bronchoalveolar lavage. Further PET scan assessment can be considered if clinically required. Other findings as descr ibed above.
--- NOTE | 2021-08-28 12:07 | P.PN ---
Subjective Patient is seen in follow-up for proteinuria and hematuria. Patient states urine was initially orange prior to admission but is now clear. He is receiving IV fluids. Repeat UA shows trace protein with 10 RBCs which is improved from initial UA. He does admit to a cough with blood-tinged sputum. No vomiting or diarrhea. No chest pain or shortness breath. Vital signs are stable. General: Awake. No acute distress. HEENT: Head exam is unremarkable. LUNGS: Breath sounds decreased. HEART: Rate and Rhythm are regular. ABDOMEN: Soft, no distention. EXTREMITITES: No edema. Objective - Vital Signs Vital signs: Vital Signs Temp 98.6 F 08/28/21 07:32 Pulse 79 08/28/21 07:38 Resp 19 08/28/21 07:38 BP 113/73 08/28/21 07:32 Pulse Ox 99 08/28/21 07:32 FiO2 Intake & Output 08/27/21 08/28/21 08/28/21 18:59 06:59 18:59 Intake Total 1610 Balance 1610 Intake: Intake, IV Titration 1610 Amount Sodium Chloride 0.9% 1, 1560 000 ml @ 130 mls/hr IV . Q7H42M [facility] Rx#:[id number] cefTRIAXone 1 gm In 50 Sodium Chloride 0.9% 50 ml @ 100 mls/hr IVPB Q24H [facility] Rx#:[id number] Other: # Voids 4 - Labs CBC & Chem 7: 08/28/21 06:09 08/28/21 06:09 Labs: Abnormal Lab Results - Last 24 Hours (Table) 08/27/21 08/27/21 08/28/21 Range/Units 09:25 14:57 06:09 WBC (4.50-10.00) X 10*3/uL RBC (4.40-5.60) X 10*6/uL Hgb (13.0-17.0) g/dL Hct (39.6-50.0) % MPV (9.5-12.2) fL Calcium 8.3 L (8.7-10.3) mg/dL Procalcitonin 0.28 H (0.02-0.09) ng/mL Urine Protein Trace H (Negative) Urine Blood Trace H (Negative) Urine RBC 10 H (0-5) /hpf Urine Mucus Occasional H (None) /hpf 08/28/21 Range/Units 06:09 WBC 10.42 H (4.50-10.00) X 10*3/uL RBC 4.18 L (4.40-5.60) X 10*6/uL Hgb 12.2 L (13.0-17.0) g/dL Hct 37.4 L (39.6-50.0) % MPV 9.4 L (9.5-12.2) fL Calcium (8.7-10.3) mg/dL Procalcitonin (0.02-0.09) ng/mL Urine Protein (Negative) Urine Blood (Negative) Urine RBC (0-5) /hpf Urine Mucus (None) /hpf Microbiology - Last 24 Hours (Table) 08/27/21 09:25 Blood Culture - Preliminary Blood No Growth after 24 hours 08/26/21 19:10 Blood Culture - Preliminary Blood No Growth after 24 hours 08/26/21 19:45 Blood Culture - Preliminary Blood No Growth after 24 hours 08/27/21 10:57 Nasal Screen MRSA/MSSA - Preliminary Nasal Swab Assessment and Plan Plan: Assessment: 1. Proteinuria and hematuria. Can be nonspecific in the setting of dehydration. Repeat UA shows only trace protein to 10 RBCs. GFR at baseline. Creatinine 0.6. 2. Pneumonia maintained on antibiotics. Plan: Follow-up serologies. Complements normal. Check hepatitis panel as well as anti-GBM antibody. Maintain IV fluids. Avoid nephrotoxins. Quantify proteinuria.
[2021-08-28 12:40] LABS: Anti-DNA, DS unit <1.0 IU/mL; DNA Double-Stranded NEGATIVE (NEGATIVE)
[2021-08-28 18:56] LABS: Hepatitis A Antibody IgM Nonreactive (Nonreactive); Hepatitis B Core IgM Nonreactive (Nonreactive); Hepatitis B Surface Antigen Nonreactive (Nonreactive); Hepatitis C IgG Antibody Nonreactive (Nonreactive)
[2021-08-29 09:40] LABS: HGB 13.6 g/dL (13.0-17.0); MCH 29.5 pg (27.0-32.0); MCHC 33.2 g/dL (32.0-37.0); MCV 88.9 fL (80.0-97.0); Mean Platelet Volume 9.3 fL (9.5-12.2); NRBC Per 100 WBC 0 /100 WBCS (0.0-0.0); Platelet Count 252 X 10*3/uL (140-440); RBC 4.61 X 10*6/uL (4.40-5.60); WBC 6.99 X 10*3/uL (4.50-10.00)
--- NOTE | 2021-08-29 09:41 | P.PN ---
Subjective Patient is seen in follow-up for proteinuria and hematuria. Patient states urine was initially orange prior to admission but is now clear. He is receiving IV fluids. Repeat UA shows trace protein with 10 RBCs which is improved from initial UA. He continues to have a cough with blood-tinged sputum. No vomiting or diarrhea. No chest pain or shortness breath. Vital signs are stable. General: Awake. No acute distress. HEENT: Head exam is unremarkable. LUNGS: Breath sounds decreased. HEART: Rate and Rhythm are regular. ABDOMEN: Soft, no distention. EXTREMITITES: No edema. Objective - Vital Signs Vital signs: Vital Signs Temp 98.4 F 08/29/21 08:00 Pulse 74 08/29/21 08:00 Resp 18 08/29/21 08:00 BP 138/80 08/29/21 08:00 Pulse Ox 97 08/29/21 08:00 FiO2 Intake & Output 08/28/21 08/29/21 08/29/21 18:59 06:59 18:59 Intake Total 800 Balance 800 Intake: Oral 800 Other: Voiding Method Toilet # Voids 3 - Labs CBC & Chem 7: 08/28/21 06:09 08/28/21 06:09 Labs: Abnormal Lab Results - Last 24 Hours (Table) 08/28/21 Range/Units 06:09 Calcium 8.3 L (8.7-10.3) mg/dL Microbiology - Last 24 Hours (Table) 08/28/21 15:30 Gram Stain - Preliminary Sputum Sputum Culture - Preliminary 08/26/21 19:45 Blood Culture - Preliminary Blood No Growth after 48 hours 08/26/21 19:10 Blood Culture - Preliminary Blood No Growth after 48 hours 08/27/21 10:57 Nasal Screen MRSA/MSSA - Final Nasal Swab 08/27/21 09:25 Blood Culture - Preliminary Blood No Growth after 24 hours Assessment and Plan Plan: Assessment: 1. Proteinuria and hematuria. Can be nonspecific in the setting of dehydration. Repeat UA shows only trace protein to 10 RBCs. GFR at baseline. Creatinine 0.6. 2. Pneumonia maintained on antibiotics. Plan: Follow-up serologies. Complements normal. Hepatitis panel negative. JULES and double stranded DNA antibody negative. Complements normal. Follow-up pending serologies including anti-GBM antibody. Maintain IV fluids. Avoid nephrotoxins. Follow-up UPC. Patient will need to follow-up outpatient in 1 week post discharge
[2021-08-29 09:44] LABS: African American GFR (CKD) 139.3 (60.0-200.0); Anion Gap 12.1 mmol/L (10.00-18.00); BUN/Creat Ratio 13.87 Ratio (12.00-20.00); Blood Urea Nitrogen 9.1 mg/dL (9.0-27.0); Carbon Dioxide 25.8 mmol/L (20.0-27.5); Non-African American GFR(CKD) 120.2 (60.0-200.0)
[2021-08-29 09:52] LABS: Creatinine,Urine Random 62.1 mg/dL; Protein/Creatinine Ratio,Urine 0.161
[2021-08-29] MEDS: ENOXAPARIN 40 MG/0.4 ML SYRINGE SQ SCH (09:53)
[2021-08-29] MEDS: SODIUM CHLORIDE 0.9% 1,000 ML IV SCH (09:53)
[2021-08-29] MEDS: AZITHROMYCIN 500 MG TAB PO SCH (09:53)
[2021-08-29 10:00] LABS: Appearance,Urine Clear (Clear); Bilirubin,Urine Negative (Negative); Blood,Urine Negative (Negative); Color,Urine Light Yellow; Glucose,Urine (UA) Negative (Negative); Ketones,Urine Negative (Negative); Leukocyte Esterase,Urine Negative (Negative); Nitrite,Urine Negative (Negative); Protein,Urine Negative (Negative); Specific Gravity,Urine 1.012 (1.001-1.035); Urobilinogen,Urine <2.0 mg/dL (<2.0)
--- NOTE | 2021-08-29 10:10 | P.PN ---
Subjective Progress Note Date: 08/29/21 Principal diagnosis: Pneumonia. This is a 41-year-old white male, [id number]-pnog smoking history, smokes on the average of one pack per day, no previous history of medical illnesses. Patient is normally healthy. He came in with 4 days history of cough and fever, describes the cough as nonproductive cough, minimal shortness of breath, he also had intermittent episodes of nausea and vomiting. Chest x-ray showed significant consolidation in the right midlung area and right upper lobe. Chest x-ray showed basically a masslike consolidation. Patient was admitted placed on Rocephin and Zithromax, and this consult was initiated. Patient was noted to have leukocytosis with WBC count of 15,000. Elevated PMNs. Normal electrolytes and normal renal profile. CT of abdomen and pelvis done on this admission for his symptoms of nausea and vomiting came back unremarkable. Patient is now on room air, O2 saturations 98%. His temperature now is 99.2. The patient is seen today 08/28/2021 in follow-up on the regular medical floor. He is currently resting fairly comfortably in bed. Awake and alert in no acute distress. He is maintaining good O2 saturations up to 99% on room air. He's currently afebrile. Hemodynamically stable. He did have an elevated temperature of 100.7 last evening. He also coughed up some blood-tinged sputum. White count 10.4. Hemoglobin 12.2. Pro-calcitonin was 0.28. Legionella antigen screen negative. He remains on ceftriaxone and azithromycin. He has normal saline running at 130 ML's per hour. He is also having issues with hematuria. Nephrology was consulted. Progress note dated 08/29/2021. The patient appears to be doing better. He seen in room 458. He's not receiving any supplemental oxygen. He is getting saline at 75 mL an hour. The patient is coughing up just some very small blood-tinged sputum. He denies any chest pain or chest discomfort. No fever or chills. CAT scan was done yesterday, and reviewed with the patient today. He remains on Rocephin and azithromycin. White count 6.99, hemoglobin 13.6, hematocrit 41, platelet count 252,000. Sodium, potassium, chloride, CO2, anion gap, BUN, and creatinine are all normal. Urine is negative. Testing for Legionella was negative. The rest of the studies are all negative. All microbiologic studies including sputum Gram stain, nasal swab, and blood cultures are negative. We did a CAT scan yesterday which suggested acute inflammatory/infectious abnormality, and a repeat evaluation was suggested at 6-8 weeks. Objective - Vital Signs Vital signs: Vital Signs Temp 98.4 F 08/29/21 08:00 Pulse 74 08/29/21 08:00 Resp 18 08/29/21 08:00 BP 138/80 08/29/21 08:00 Pulse Ox 97 08/29/21 08:00 FiO2 Intake & Output 08/28/21 08/29/21 08/29/21 18:59 06:59 18:59 Intake Total 800 Balance 800 Intake: Oral 800 Other: Voiding Method Toilet # Voids 3 - Exam No acute distress, oriented 3. Currently on room air. No use of accessory muscles, audible wheezing, or conversational dyspnea. HEENT examination is grossly unremarkable. Neck supple. Full range of motion. No adenopathy thyromegaly or neck vein distention. Cardiovascular examination reveals regular rhythm rate. S1-S2 normal. No S3 or S4. No discernible murmur noted. Heart rate 74 bpm. Lungs reveal mostly clear breath sounds. Minimal scattered rhonchi. No wheezes. No crackles. Resting room air saturation between 97 and 98%. Abdomen soft bowel sounds are heard. No masses or tenderness. Extremities are intact. No cyanosis clubbing or edema. Skin is without rash or lesion. Neurologic examination is brief but nonfocal. - Labs CBC & Chem 7: 08/29/21 06:00 08/29/21 06:00 Labs: Abnormal Lab Results - Last 24 Hours (Table) 08/28/21 08/29/21 Range/Units 06:09 06:00 MPV 9.3 L (9.5-12.2) fL Calcium 8.3 L (8.7-10.3) mg/dL Microbiology - Last 24 Hours (Table) 08/28/21 15:30 Gram Stain - Preliminary Sputum Sputum Culture - Preliminary 08/26/21 19:45 Blood Culture - Preliminary Blood No Growth after 48 hours 08/26/21 19:10 Blood Culture - Preliminary Blood No Growth after 48 hours 08/27/21 10:57 Nasal Screen MRSA/MSSA - Final Nasal Swab 08/27/21 09:25 Blood Culture - Preliminary Blood No Growth after 24 hours Assessment and Plan Assessment: Acute community acquired pneumonia. Fever, secondary to pneumonia. Leukocytosis, secondary to pneumonia. Hematuria, currently being evaluated. Chronic tobacco dependence. Plan: Plan dated 08/29/2021. The patient remains on appropriate antibiotics. All cultures are negative thus far. We will continue to follow and make recommendations were appropriate. Labs, x-rays, and medications are all reviewed. The patient's clinically much improved. He might be considered for discharge today. He'll need a follow-up in our office, and a follow-up x-ray and/or CAT scan. He is counseled about the importance of smoking cessation. The results of the computed tomography scan are shared with the patient today. Time with Patient: Less than 30
--- NOTE | 2021-08-29 12:05 | P.PN ---
Subjective Principal diagnosis: Community-acquired pneumonia Reason for admission: 41-year-old male without significant medical history no home medications, admitted with fever up to 103 or chills dry cough malaise, leukocytosis. Found to have pneumonia, infiltrate in the chest x-ray in the right upper lobe. UA significant for proteinuria and RBCs. Normal creatinine. Generally healthy now, history of frequent bronchitis as a child. Feeling better this morning. He remained afebrile overnight. Denies any respiratory or GI complaints. Denies any abdominal pain nausea vomiting or diarrhea. Blood cultures remain negative. Objective - Vital Signs Vital signs: Vital Signs Temp 98.4 F 08/29/21 08:00 Pulse 74 08/29/21 08:00 Resp 18 08/29/21 08:00 BP 138/80 08/29/21 08:00 Pulse Ox 97 08/29/21 08:00 FiO2 Intake & Output 08/28/21 08/29/21 08/29/21 18:59 06:59 18:59 Intake Total 800 Balance 800 Intake: Oral 800 Other: Voiding Method Toilet Toilet # Voids 3 - Exam Awake alert oriented 3, no acute distress Head and neck: Anicteric sclera, extraocular movements intact, no facial asymmetry, oropharyngeal mucosa is moist without any lesions, neck is supple without rigidity, no neck masses or neck vein distention Heart: Regular rhythm and rate, S1, S2; no murmurs rubs or gallops Lungs: Breath sounds present bilateral, bronchial breath sounds, inspiratory rhonchi and crackles heard on the right side mid and lower lung ramos Abdomen: Bowel sounds present throughout, abdomen is soft, nontender, nondistended, no involuntary guarding, no hernias or organomegaly, no flank tenderness Extremities: No peripheral edema, no cyanosis, warm well perfused with palpable dorsalis pedis pulses bilateral and good capillary refill, without joint s welling or deformities, no skin rashes, no joint swelling - Labs CBC & Chem 7: 08/29/21 06:00 08/29/21 06:00 Labs: Abnormal Lab Results - Last 24 Hours (Table) 08/29/21 Range/Units 06:00 MPV 9.3 L (9.5-12.2) fL Microbiology - Last 24 Hours (Table) 08/27/21 09:25 Blood Culture - Preliminary Blood No Growth after 48 hours 08/28/21 15:30 Gram Stain - Preliminary Sputum Sputum Culture - Preliminary 08/26/21 19:45 Blood Culture - Preliminary Blood No Growth after 48 hours 08/26/21 19:10 Blood Culture - Preliminary Blood No Growth after 48 hours 08/27/21 10:57 Nasal Screen MRSA/MSSA - Final Nasal Swab Assessment and Plan Assessment: #Community-acquired pneumonia with sepsis Fever, leukocytosis, tachycardia Chest x-ray: Right upper lobe infiltrate CT abdomen and pelvis: No intra-abdominal abnormalities, picked up by basilar multifocal groundglass infiltrate Continue ceftriaxone and Zithromax bronchodilators when necessary Blood cultures, no growth to date Ordered sputum Gram stain culture Legionella urine antigen: Negative MRSA nasal screen HIV Pulmonary consultation #Microscopic hematuria Normal creatinine Evaluate for possibility of underlying GN nephrology following DVT prophylaxis: Subcu heparin I discussed with the patient and patient's mother in the room need for repeating imaging in 46 weeks which can be done through primary care physician office or pulmonary office; reason is to rule out underlying to tumors and abnormalities. They were agreeable with this plan.
[2021-08-29 14:46] LABS: HIV 2 AB Non-Reactive (Non-Reactive); HIV AB P24 Non-Reactive (Non-Reactive); HIV P24 AG Non-Reactive (Non-Reactive)
[2021-08-29 14:47] LABS: C-ANCA <1:20 Titer (<1:20)
[2021-08-30] MEDS: SODIUM CHLORIDE 0.9% 1,000 ML IV SCH (05:29)
[2021-08-30] MEDS: ENOXAPARIN 40 MG/0.4 ML SYRINGE SQ SCH (07:37)
[2021-08-30] MEDS: AZITHROMYCIN 500 MG TAB PO SCH (07:37)
[2021-08-30 08:54] VITALS: BP 126/87; PULSE 67; RESP 17; TEMP 98.5
[2021-08-30 10:01] LABS: African American GFR (CKD) 135.9 (60.0-200.0); Anion Gap 13.3 mmol/L (10.00-18.00); BUN/Creat Ratio 19.86 Ratio (12.00-20.00); Blood Urea Nitrogen 13.9 mg/dL (9.0-27.0); Calcium 9.2 mg/dL (8.7-10.3); Carbon Dioxide 23.7 mmol/L (20.0-27.5); HCT 43.3 % (39.6-50.0); MCH 29.1 pg (27.0-32.0); MCHC 32.3 g/dL (32.0-37.0); Mean Platelet Volume 9.5 fL (9.5-12.2); NRBC Per 100 WBC 0 /100 WBCS (0.0-0.0); Non-African American GFR(CKD) 117.2 (60.0-200.0); Platelet Count 346 X 10*3/uL (140-440); Potassium 4.6 mmol/L (3.5-5.5); RBC 4.81 X 10*6/uL (4.40-5.60); WBC 8.68 X 10*3/uL (4.50-10.00)
--- NOTE | 2021-08-30 12:35 | P.PN ---
Subjective Progress Note Date: 08/30/21 This is a 41-year-old white male, [id number] smoking history, smokes on the average of one pack per day, no previous history of medical illnesses. Patient is normally healthy. He came in with 4 days history of cough and fever, describes the cough as nonproductive cough, minimal shortness of breath, he also had intermittent episodes of nausea and vomiting. Chest x-ray showed significant consolidation in the right midlung area and right upper lobe. Chest x-ray showed basically a masslike consolidation. Patient was admitted placed on Rocephin and Zithromax, and this consult was initiated. Patient was noted to have leukocytosis with WBC count of 15,000. Elevated PMNs. Normal electrolytes and normal renal profile. CT of abdomen and pelvis done on this admission for his symptoms of nausea and vomiting came back unremarkable. Patient is now on room air, O2 saturations 98%. His temperature now is 99.2. The patient is seen today 08/28/2021 in follow-up on the regular medical floor. He is currently resting fairly comfortably in bed. Awake and alert in no acute distress. He is maintaining good O2 saturations up to 99% on room air. He's currently afebrile. Hemodynamically stable. He did have an elevated temperature of 100.7 last evening. He also coughed up some blood-tinged sputum. White count 10.4. Hemoglobin 12.2. Pro-calcitonin was 0.28. Legionella antigen screen negative. He remains on ceftriaxone and azithromycin. He has normal saline running at 130 ML's per hour. He is also having issues with hematuria. Nephrology was consulted. The patient is seen today 08/30/2021 in follow-up on the regular medical floor. He is currently sitting up in bed. Awake and alert in no acute distress. Continuing to maintain good O2 saturations in the 90s on room air. He's been afebrile. Hemodynamically stable. White count 8.6. Hemoglobin 14.0. Sodium 139. Potassium 4.6. BUN 14. Creatinine 0.7. He's been maintained on ceftriaxone and azithromycin. Objective - Vital Signs Vital signs: Vital Signs Temp 98.5 F 08/30/21 08:00 Pulse 67 08/30/21 08:00 Resp 17 08/30/21 08:00 BP 126/87 08/30/21 08:00 Pulse Ox 95 08/30/21 08:00 FiO2 Intake & Output 08/29/21 08/30/21 08/30/21 18:59 06:59 18:59 Other: Voiding Method Toilet Toilet Toilet # Voids 3 4 - Exam GENERAL EXAM: Alert, pleasant 41-year-old male patient, on room air, fairly comfortable in no apparent distress. HEAD: Normocephalic. EYES: Normal reaction of pupils, equal size. NOSE: Clear with pink turbinates. THROAT: No erythema or exudates. NECK: No masses, no JVD. CHEST: No chest wall deformity. LUNGS: Equal air entry with bilateral scattered rhonchi. CVS: S1 and S2 normal with no audible murmur, regular rhythm. ABDOMEN: No hepatosplenomegaly, normal bowel sounds, no guarding or rigidity. SPINE: No scoliosis or deformity SKIN: No rashes CENTRAL NERVOUS SYSTEM: No focal deficits, tone is normal in all 4 extremities. EXTREMITIES: There is no peripheral edema. No clubbing, no cyanosis. Peripheral pulses are intact. - Labs CBC & Chem 7: 08/30/21 04:27 08/30/21 04:27 Labs: Microbiology - Last 24 Hours (Table) 08/27/21 09:25 Blood Culture - Preliminary Blood No Growth after 72 hours 08/26/21 19:45 Blood Culture - Preliminary Blood No Growth after 72 hours 08/26/21 19:10 Blood Culture - Preliminary Blood No Growth after 72 hours 08/28/21 15:30 Gram Stain - Preliminary Sputum Sputum Culture - Preliminary Assessment and Plan Assessment: 1 Acute community-acquired pneumonia. Pro-calcitonin 0.28. Legionella antigen screen negative, COVID-19 screen negative. Influenza and RSV screens negative. 2 Febrile illness secondary to above, recovered 3 Leukocytosis secondary to above, improved 4 Hematuria of unclear etiology, possibly secondary to NSAIDs and dehydration. 5 Chronic tobacco dependence Plan: The patient was seen and evaluated Medications and labs reviewed Cleared for discharge from the pulmonary standpoint Follow up in our office in 1 week I have personally seen and examined the patient, performed the documentation and the assessment and plan as written. Number of minutes spent on the visit: 10.
--- NOTE | 2021-08-30 18:29 | P.DS ---
Providers Date of admission: 08/26/21 18:44 Attending physician: Johanny Wolfe MD Consults: 08/27/21 09:03 Consult Physician Routine Consulting Provider: Walter Wong Consult Reason/Comments: Pneumonia Do you want consulting provider notified?: Yes 08/27/21 10:40 Consult Physician Routine Consulting Provider: Grace Gomez Consult Reason/Comments: Hematuria Do you want consulting provider notified?: Yes Primary care physician: Serafin Lawrence Hospital Course: Discharge Diagnosis: Community-acquired pneumonia with sepsis Acute hypoxic respiratory failure Hyponatremia Microscopic hematuria Nicotine dependency Hospital Course: Patient is a 41-year-old male with no underlying past medical conditions who presented to the ER with 4 days of fever and vomiting. In the ER he underwent an extensive evaluation. Initial laboratory analysis showed a white blood cell count of 14.6, sodium 131, potassium 3.2, COVID-19, influenza, and RSV testing were negative. Chest x-ray demonstrated right upper lobe consolidation. CT abdomen and pelvis was negative. He was admitted for community-acquired pneumonia with sepsis. He was started on Rocephin and Zithromax. Due to his microscopic hematuria and hyponatremia nephrology was consulted.. These improved throughout his hospital stay. He is also followed by pulmonary. He did undergo a CT of the chest which showed thick area of consolidation in the right upper lobe with air bronchograms and associated groundglass opacities throughout both lungs felt to be possible acute inflammatory infectious process however infiltrative neoplastic or malignant process could not fully be excluded. Patient continued to improve throughout his hospital stay. His leukocytosis resolved and he has breathing is back to baseline. He was determined stable for discharge home. Follow-up: Dr. Lawrence in 1-[address] Otto in 4 weeks with plan for repeat CT chest in 6-8 weeks, Dr. Swift in 1 week for analysis of microscopic hematuria. Patient seen and examined at bedside. He is feeling well. Breathing is back to baseline. He still feels slightly more tired. We went over his plans for follow-up and all questions were answered. Vital signs reviewed and stable. General: nontoxic, no distress, appears at stated age Derm: warm, dry Head: atraumatic, normocephalic, symmetric Eyes: EOMI, no lid lag, anicteric sclera Mouth: no lip lesion, mucus membranes moist Cardiovascular: S1S2 reg, no murmur, positive posterior tibial pulse bilateral, Lungs: CTA bilateral, no rhonchi, no rales , no accessory muscle use Abdominal: soft, nontender to palpation, no guarding, no appreciable organomegaly Ext: no gross muscle atrophy, no edema, no contractures Neuro: CN II-XI grossly intact, no focal neuro deficits Psych: Alert, oriented, appropriate affect A total of 37 minutes of time were spent preparing this complex discharge summary. Patient was discharged on 08/30/21. Patient Condition at Discharge: Stable Plan - Discharge Summary Discharge Rx Participant: Yes New Discharge Prescriptions: New Cefdinir [Omnicef] 300 mg PO Q12HR #6 capsule Discharge Medication List Cefdinir [Omnicef] 300 mg PO Q12HR #6 capsule 08/30/21 [Rx] Follow up Appointment(s)/Referral(s): Naseem Otto DO [Doctor of Osteopathic Medicine] - 10/02/21 9:45 am Davis Swift DO [STAFF PHYSICIAN] - 1 Week (office will call with appointment time) Serafin Lawrence DO [Primary Care Provider] - 09/04/21 10:20 am Patient Instructions/Handouts: How to Stop Smoking (DC), Community Acquired Pneumonia (DC) Activity/Diet/Wound Care/Special Instructions: Activity: as tolerated Diet: regular Special Instructions: Repeat chest x-ray and or CT of the chest in 46 weeks with primary care physician or call technology applications teacher office Take mediations as prescribed Return to hospital if worsening cough, fevers, or feeling worse Discharge Disposition: HOME SELF-CARE Plan of Treatment: Repeat chest x-ray and or CT of the chest in 46 weeks with primary care physician or call technology applications teacher office
== END 2021-08-30 12:50 | disposition home or self-care (01) | DRG 871 ==
LOC: EC 13:12 → 4SSUR 18:44
PROVIDERS: ADMIT Internal Medicine; ATTEND Internal Medicine
DX: A41.9 Sepsis, unspecified organism (principal); J18.0 Bronchopneumonia, unspecified organism; J96.01 Acute respiratory failure with hypoxia; E87.1 Hypo-osmolality and hyponatremia; Z20.822 Contact with and (suspected) exposure to COVID-19; E86.0 Dehydration; E87.6 Hypokalemia; F17.210 Nicotine dependence, cigarettes, uncomplicated; R31.29 Other microscopic hematuria; Z82.49 Family history of ischemic heart disease and other diseases of the circulatory system
CPT/HCPCS: 36415; 71046; 71260; 74177; 80048; 80053; 80074; 81001; 81003; 82550; 82570; 83516; 83605; 83690; 83735; 84145; 84156; 85025; 85027; 86038; 86160; 86225; 86255; 86334; 86335; 87040; 87070; 87205; 87390; 87449; 87502; 87635; 87636; 94760; 96361; 96374; 96375; 99285

== ENCOUNTER 2023-06-17 07:03 | Emergency (ER) | payer BC ==
[2023-06-17 07:22] VITALS: TEMP 97.6
--- NOTE | 2023-06-17 07:41 | ED ---
Nausea/Vomiting/Diarrhea HPI - General Chief complaint: Nausea/Vomiting/Diarrhea Stated complaint: Vomiting Source: patient, RN notes reviewed Mode of arrival: ambulatory Limitations: no limitations - History of Present Illness Initial comments: 43-year-old male who is a current tobacco smoker presenting with N/V/D x 3 days. Also states he has a dry cough today. He admits body aches and subjective fevers. States he is able to tolerate orals but is feeling nauseous and vomited once this morning. States the diarrhea is improving. States his symptoms are similar to a pneumonia that he had 2 years ago. Denies chest pain, shortness of breath, blood in stool, sick contacts. Denies history of asthma or COPD. Denies dysuria, urinary frequency, urinary urgency. - Related Data Previous Rx's Medication Instructions Recorded Cefdinir [Omnicef] 300 mg PO Q12HR #6 capsule 08/30/21 Ondansetron Odt [Zofran Odt] 4 mg PO Q8HR PRN #10 tab 06/17/23 Allergies Allergy/AdvReac Type Severity Reaction Status Date / Time No Known Allergies Allergy Verified 06/17/23 07:19 Review of Systems ROS Statement: Those systems with pertinent positive or pertinent negative responses have been documented in the HPI. ROS Other: All systems not noted in ROS Statement are negative. Past Medical History Past Medical History: No Reported History History of Any Multi-Drug Resistant Organisms: None Reported Past Surgical History: No Surgical Hx Reported Past Psychological History: No Psychological Hx Reported Smoking Status: Current every day smoker Past Alcohol Use History: None Reported Past Drug Use History: Marijuana - Past Family History Father Family Medical History: Hypertension General Exam Limitations: no limitations Head exam: Present: atraumatic, normocephalic, normal inspection Eye exam: Present: normal appearance, PERRL, EOMI. Absent: scleral icterus, conjunctival injection, periorbital swelling ENT exam: Present: normal exam (Oral mucosa moist), mucous membranes moist Neck exam: Present: normal inspection. Absent: tenderness, meningismus, lymphadenopathy Respiratory exam: Present: wheezes (Mild expiratory wheezing in bilateral lower lung ramos.). Absent: normal lung sounds bilaterally, respiratory distress, rales, rhonchi, stridor Cardiovascular Exam: Present: regular rate, normal rhythm, normal heart sounds. Absent: systolic murmur, diastolic murmur, rubs, gallop, clicks GI/Abdominal exam: Present: soft (No CVA tenderness bilaterally), normal bowel sounds. Absent: distended, tenderness, guarding, rebound, rigid Psychiatric exam: Present: normal affect, normal mood Skin exam: Present: warm, dry, intact, normal color. Absent: rash Course Vital Signs 06/17/23 06/17/23 06/17/23 07:17 08:26 09:28 Temperature 97.6 F Pulse Rate 74 68 75 Respiratory 18 18 18 Rate Blood Pressure 145/82 140/91 130/75 O2 Sat by Pulse 99 98 98 Oximetry Medical Decision Making - Medical Decision Making Was pt. sent in by a medical professional or institution (, PA, PERSONAL INJURY [employer], urgent care, hospital, or [facility]...) When possible be specific @ -[No] Did you speak to anyone other than the patient for history (EMS, parent, family, police, friend...)? What history was obtained from this source @ -[No] Did you review nursing and triage notes (agree or disagree)? Why? @ -[I reviewed and agree with nursing and triage notes] Were old charts reviewed (outside hosp., previous admission, EMS record, old EKG, old radiological studies, urgent care reports/EKG's, [facility] records)? Report findings @ -[No old charts were reviewed] Differential Diagnosis (chest pain, altered mental status, abdominal pain women, abdominal pain men, vaginal bleeding, weakness, fever, dyspnea, syncope, headache, dizziness, GI bleed, back pain, seizure, CVA, palpatations, mental health, musculoskeletal)? @ -COVID 19, RSV, influenza, pneumonia, acute bronchitis, URI, this list is not all inclusive EKG interpreted by me (3pts min.). @ -None X-rays interpreted by me (1pt min.). @ -Chest x-ray reveals no acute process CT interpreted by me (1pt min.). @ -[None done] U/S interpreted by me (1pt. min.). @ -[None done] What testing was considered but not performed or refused? (CT, X-rays, U/S, labs)? Why? @ -CT scan of abdomen was considered due to nausea, vomiting, diarrhea however not performed due to no abdominal pain or tenderness What meds were considered but not given or refused? Why? @ -[None] Did you discuss the management of the patient with other professionals (professionals i.e. , PA, PERSONAL INJURY [employer], lab, RT, psych nurse, social media analyst, social services director, teacher, liaison officer, home health care case manager)? Give summary @ -[No] Was smoking cessation discussed for >3mins.? @ -[No] Was critical care preformed (if so, how long)? @ -[No] Were there social determinants of health that impacted care today? How? (Homelessness, low income, unemployed, alcoholism, drug addiction, transportation, low edu. Level, literacy, decrease access to med. care, [place] [facility], rehab)? @ -[No] Was there de-escalation of care discussed even if they declined (Discuss DNR or withdrawal of care, Hospice)? DNR status @ -[No] What co-morbidities impacted this encounter? (DM, HTN, Smoking, COPD, CAD, Cancer, CVA, ARF, Chemo, Hep., AIDS, mental health diagnosis, sleep apnea, morbid obesity)? @ -[None] Was patient admitted / discharged? Hospital course, mention meds given and route, prescriptions, significant lab abnormalities, going to OR and other pertinent info. @ -Patient was seen for vomiting with cough x 3 days. Patient was given Zofran and Solu-Medrol for nausea and wheezing. CBC and CMP were normal. Flu, COVID, RSV were negative. Chest x-ray revealed no acute process. Patient was discharged in stable condition. Zofran prescribed for nausea. Discussed supportive treatment and hydration. Please return to the Emergency Department if symptoms worsen or any other concerns. Undiagnosed new problem with uncertain prognosis? @ -[No] Drug Therapy requiring intensive monitoring for toxicity (Heparin, Nitro, Insul in, Cardizem)? @ -[No] Were any procedures done? @ -[No] Diagnosis/symptom? @ -Viral gastroenteritis Acute, or Chronic, or Acute on Chronic? @ -Acute Uncomplicated (without systemic symptoms) or Complicated (systemic symptoms)? @ -[default] Side effects of treatment? @ -[No] Exacerbation, Progression, or Severe Exacerbation? @ -[No] Poses a threat to life or bodily function? How? (Chest pain, [place], [place], pneumonia, PE, COPD, DKA, ARF, appy, cholecystitis, CVA, Diverticulitis, Homicidal, Suicidal, threat to staff... and all critical care pts) @ -[No] - Lab Data Result diagrams: 06/17/23 08:14 06/17/23 08:14 Lab Results 06/17/23 06/17/23 06/17/23 Range/Units 08:14 08:14 08:14 WBC 8.9 (3.8-10.6) k/uL RBC 5.05 (4.30-5.90) m/uL Hgb 15.0 (13.0-17.5) gm/dL Hct 45.7 (39.0-53.0) % MCV 90.4 (80.0-100.0) fL MCH 29.8 (25.0-35.0) pg MCHC 32.9 (31.0-37.0) g/dL RDW 12.5 (11.5-15.5) % Plt Count 269 (150-450) k/uL MPV 7.0 Neutrophils % 70 % Lymphocytes % 17 % Monocytes % 6 % Eosinophils % 3 % Basophils % 1 % Neutrophils # 6.2 (1.3-7.7) k/uL Lymphocytes # 1.5 (1.0-4.8) k/uL Monocytes # 0.6 (0-1.0) k/uL Eosinophils # 0.2 (0-0.7) k/uL Basophils # 0.0 (0-0.2) k/uL Sodium 139 (137-145) mmol/L Potassium 3.8 (3.5-5.1) mmol/L Chloride 108 H (98-107) mmol/L Carbon Dioxide 23 (22-30) mmol/L Anion Gap 8 mmol/L BUN 16 (9-20) mg/dL Creatinine 0.68 (0.66-1.25) mg/dL Est GFR (CKD-EPI)AfAm >90 (>60 ml/min/1.73 sqM) Est GFR (CKD-EPI)NonAf >90 (>60 ml/min/1.73 sqM) Glucose 101 H (74-99) mg/dL Calcium 8.8 (8.4-10.2) mg/dL Total Bilirubin 0.7 (0.2-1.3) mg/dL AST 34 (17-59) U/L ALT 41 (4-49) U/L Alkaline Phosphatase 57 (38-126) U/L Total Protein 6.7 (6.3-8.2) g/dL Albumin 4.1 (3.5-5.0) g/dL Influenza Type A (PCR) Not Detected (Not Detectd) Influenza Type B (PCR) Not Detected (Not Detectd) RSV (PCR) Not Detected (Not Detectd) SARS-CoV-2 (PCR) Not Detected (Not Detectd) Disposition Clinical Impression: Viral gastroenteritis Clinical Impression: (Ruled Out): Viral gastroenteritis due to [place] virus Disposition: HOME SELF-CARE Condition: Stable Instructions (If sedation given, give patient instructions): Acute Nausea and Vomiting (ED) Additional Instructions: Please return to the Emergency Department if symptoms worsen or any other concerns. Prescriptions: Ondansetron Odt [Zofran Odt] 4 mg PO Q8HR PRN #10 tab PRN Reason: Nausea Is patient prescribed a controlled substance at d/c from ED?: No Referrals: Serafin Lawrence DO [Primary Care Provider] - 1-2 days Time of Disposition: 10:20
[2023-06-17 08:20] LABS: Basophils % (A) 1 %; Eosinophils # (A) 0.2 k/uL (0-0.7); Eosinophils % (A) 3 %; HCT 45.7 % (39.0-53.0); Lymphocytes # (A) 1.5 k/uL (1.0-4.8); Lymphocytes % (A) 17 %; MCH 29.8 pg (25.0-35.0); MCHC 32.9 g/dL (31.0-37.0); MCV 90.4 fL (80.0-100.0); Monocytes # (A) 0.6 k/uL (0-1.0); Monocytes % (A) 6 %; Neutrophils # (A) 6.2 k/uL (1.3-7.7); Neutrophils % (A) 70 %; Platelet Count 269 k/uL (150-450); RBC 5.05 m/uL (4.30-5.90); RDW 12.5 % (11.5-15.5); WBC 8.9 k/uL (3.8-10.6)
[2023-06-17] MEDS: ONDANSETRON 4 MG/2 ML VIAL IVP STA (08:22)
[2023-06-17] MEDS: SODIUM CHLORIDE 0.9% 1,000 ML IV ONE (08:23)
[2023-06-17] MEDS: methylPREDNISolone SOD SUCCI 125 MG/2 ML VIAL IV STA (08:24)
[2023-06-17] MEDS ORDERED: methylPREDNISolone SOD SUCCI 125 MG/2 ML VIAL ONE (08:24)
[2023-06-17 08:36] LABS: ALT 41 U/L (4-49); AST 34 U/L (17-59); African American GFR (CKD) >90 (>60 ml/min/1.73 sqM); Albumin 4.1 g/dL (3.5-5.0); Alkaline Phosphatase 57 U/L (38-126); Anion Gap 8 mmol/L; Blood Urea Nitrogen 16 mg/dL (9-20); Calcium 8.8 mg/dL (8.4-10.2); Carbon Dioxide 23 mmol/L (22-30); Chloride 108 mmol/L (98-107); Glucose 101 mg/dL (74-99); Non-African American GFR(CKD) >90 (>60 ml/min/1.73 sqM); Potassium 3.8 mmol/L (3.5-5.1); Sodium 139 mmol/L (137-145); Total Bilirubin 0.7 mg/dL (0.2-1.3); Total Protein 6.7 g/dL (6.3-8.2)
--- NOTE | 2023-06-17 10:05 | XR ---
EXAMINATION TYPE: XR chest 2V DATE OF EXAM: 06/17/2023 COMPARISON: 08/27/2021 HISTORY: Chest pain TECHNIQUE: Frontal and lateral views of the chest are obtained. FINDINGS: There is no focal air space opacity. No evidence for pneumothorax. No pleural effusion. The cardiac silhouette size is within normal limits. The osseous structures are grossly intact. IMPRESSION: 1. No acute cardiopulmonary process.
[2023-06-17 11:37] VITALS: BP 123/71; PULSE 73; RESP 20
== END 2023-06-17 11:14 | disposition home or self-care (01) ==
LOC: EC 07:03
DX: A08.4 Viral intestinal infection, unspecified (principal); F17.200 Nicotine dependence, unspecified, uncomplicated; F12.90 Cannabis use, unspecified, uncomplicated
CPT/HCPCS: 36415; 80053; 85025; 87636; 71046; 99284; 96374; 96375; 96361; J2405; J2919